=== PATIENT | male | born 1975 | race Caucasian/White ===

== ENCOUNTER 2016-07-16 16:09 | Emergency (ER) | payer OTHER ==
--- NOTE | 2016-07-16 16:34 | PDOC ---
Psych/Suicidal/OD HPI - General Chief Complaint: Psychiatric Complaint Stated Complaint: HEARING VOICES, NOT SLEEPING Date Seen by Provider: 07/16/16 Time Seen by Provider: 16:29 Source: POSITIVE: Patient Exam Limitations: POSITIVE: No limitations - History of Present Illness Initial Comments: Everette is a 41 year old man coming in today from the office of probabation here in [facility], asking for an evaluation. He snorted meth 2 days ago, and went down to tell his classifications officer cc/cm about it. While there, he told them he's been having trouble sleeping and hearing voices, so they escorted him here for evaluation. In the exam room right now, the patient says he hasn't heart a voice for 2 days , and that they are not especially distressing to him. He denies suicidal and homicidal thoughts. He took himself off of lithium and effexor 3 weeks ago, on his own. He is still taking adderall. He hasn't slept in 6 nights for more than 2 hours each night. He takes ambien, but it wears off after 2 hours and then he wakes up. He denies headache, dizziness, lightheadedness, chest pain, shortness of breath, fever, nausea, vomiting, abdominal pain, constipation, diarrhea, and rash. He is pleasant and cooperative. His plan is to have his sister drive him up to [facility] after this visit, because he wants to be restarted on his medications. - Patient Home Medications Home Medications: Home Medications Medication Instructions Recorded Confirmed Zolpidem Tartrate [Ambien] 1 tab PO QHS PRN #30 tab 07/09/16 07/16/16 Amphet Asp/Amphet/D-Amphet 30 mg PO BID 07/16/16 07/16/16 [Adderall 30 mg Tablet] - Patient Allergies Allergies/Adverse Reactions: Allergies Allergy/AdvReac Type Severity Reaction Status Date / Time No Known Allergies Allergy Verified 07/16/16 16:34 Past Medical History - heen HEENT History: Denies History Cardiovascular History: Denies History Respiratory History: Denies History Gastrointestinal History: Denies History Genitourinary History: Denies History Endocrine History: Denies History Musculoskeletal History: Denies History Neurological History: Denies History Blood Disorders: Denies History Psychiatric History: Depression, Bi Polar Disorder, Anixety Disorders, ADHD History of Sexually Transmitted Diseases: No Cancer History: Denies History History of MDRO: Unknown History of Other Communicable Diseases: No Alcohol Use: Occasionally Substance Use Type: None, Methamphetamines Previous Surgical History: No Significant Family History: No pertinent family hx Past Medical History Reviewed: Reviewed - No Changes ROS - Limitations ROS Limitations: No Limitations Constitution: REPORTS: Denies Symptoms Cardiovascular: REPORTS: Denies Cardiac Symptoms Respiratory: REPORTS: Denies Resp Symptoms Neurological: REPORTS: Denies Neuro Symptoms Gastrointestinal: REPORTS: Denies GI Symptoms Endocrine: REPORTS: Denies Symptoms Musculoskeletal: REPORTS: Denies MS Symptoms Genitourinary: REPORTS: Denies Symptoms Eyes: REPORTS: Denies Symptoms ENT: REPORTS: Denies Symptoms Skin: REPORTS: Denies Skin Symptoms Psychiatric: POSITIVE: Anxiety, Auditory Hallucinations, Other (sleeping problems) Psych/Suicidal/OD Exam - General Appearance General Appearance: POSITIVE: No Acute Distress, Alert - HEENT HEENT: POSITIVE: Head Inspection Nml, Eyes Inspection Nml, Ears Inspection Nml, Nose Inspection Nml, Pharynx Inspect. 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 Sensory/Motor: POSITIVE: Normal Motor Response When asked, pt ADMITS continued consideration of suicide:: No - Neck/Back Neck/Back: POSITIVE: Normal Inspection - Respiratory Respiratory: POSITIVE: No Respiratory Distress, Breath Sounds Normal - CVS Cardiovascular: POSITIVE: Regular Rate and Rhythm, Heart Sounds Normal, Equal Pulses Peripheral Pulses: Radial (R): 2+, Radial (L): 2+ - Abdomen Abdomen: Soft: (All Quadrants), Denies Tenderness: (All Quadrants) - Skin Skin: POSITIVE: Intact, Normal For Race, Warm, Dry, No Rash - Extremities Extremity: Non-Tender: (All Extremities), Normal ROM: (All Extremities) Psych/Suicidal/OD Progress - Results Reviewed by me Lab Results:: Laboratory Results 07/16/16 Range/Units 16:41 WBC 7.66 (4.8-10.8) 10^3/uL RBC 5.24 (4.70-6.10) 10^6/uL Hgb 14.9 (14.0-18.0) g/dL Hct 44.4 (42.0-52.0) % MCV 84.7 (80-90) FL MCH 28.4 (27-31) PG MCHC 33.6 (33-37) g/dL RDW Std Deviation 40.7 (39-50) fL RDW Coeff of Jonathan 13.2 (11.5-14.5) % Plt Count 368 H (140-350) 10*3/uL MPV 9.5 (7.4-12.2) FL Immature Gran % (Auto) 0.1 (0-5) % Neut % (Auto) 62.5 (50-80) % Lymph % (Auto) 26.5 (10-50) % [place] % (Auto) 8.2 (5-15) % Eos % (Auto) 2.3 (0-8) % Baso % (Auto) 0.4 (0-1) % Immature Gran # (Auto) 0.01 10*3/UL Neut # (Auto) 4.78 10*3/UL Lymph # (Auto) 2.03 10*3/uL [place] # (Auto) 0.63 (0.3-0.8) 10*3/UL Eos # (Auto) 0.18 10*3/UL Baso # (Auto) 0.03 10*3/UL WBC Morphology Comment Normal morphology (NORM) Plt Morphology Comment Normal morphology (NORM) RBC Morph Comment Normal morphology (NORM) Sodium 141 (135-145) meq/L Potassium 3.8 (3.8-5.2) meq/L Chloride 102 (98-112) meq/L Carbon Dioxide 27 (23-33) meq/L Anion Gap 12 (5-20) BUN 11 (7-22) mg/dL Creatinine 0.7 (0.70-1.50) mg/dL Estimated GFR > 60 (>60 ml/min/1.73m(2)) BUN/Creatinine Ratio 15.71 (6-20) Glucose 83 (78-110) mg/dL Calculated Osmolality 289.0 (267-292) mOsm/kg Calcium 9.4 (8.7-10.7) mg/dL Total Bilirubin 0.7 (0.3-1.2) mg/dL AST 19 L (21-57) IU/L ALT 27 (21-72) IU/L Alkaline Phosphatase 66 (38-126) IU/L Total Protein 7.6 (6.1-8.0) g/dL Albumin 4.7 (3.5-4.8) g/dL Globulin 2.9 (2.50-4.10) g/dL Albumin/Globulin Ratio 1.60 (1.3-2.0) mg/g Ur Collection Type Clean catch urine Urine Color Yellow Urine Clarity Clear (CLEAR) Urine pH 7.0 (5.0-8.5) Ur Specific [place] <=1.005 (1.005-1.030) U Specif Grav (Refrac) 1.006 Urine Protein Negative (NEG) mg/dl Urine Glucose (UA) Negative (NEG) mg/dL Urine Ketones Negative (NEG) Urine Occult Blood Negative (NEG) Urine Nitrate Negative (NEG) Urine Bilirubin Negative (NEG) Urine Urobilinogen 0.2 (0.2) EU/dL Ur Leukocyte Esterase Trace (NEG) Urine RBC 0-3 (NONE) /hpf Urine WBC 0-3 (NONE) Ur Squamous Epith Cells Few (NONE) Ur Renal Epithelial Cell None (NONE) Urine Crystals None Urine Bacteria None (NONE) Urine Casts None (NONE) Urine Mucus None (NONE) Urine Trichomonas None (NONE) Urine Yeast None (NONE) Ur Culture Indicated? Culture not set Salicylates < 1 (0-20) mg/dl Urine Opiates Screen Negative (NEG) Ur Buprenorphine Negative (NEG) Ur Oxycodone Screen Negative (NEG) Urine Methadone Screen Negative (NEG) Ur Propoxyphene Screen Negative (NEG) Acetaminophen < 4.0 (0-30) ug/mL Barbiturate Screen Negative (NEG) U Tricyclic Antidepress Negative (NEG) Phencyclidine Screen Negative (NEG) Amphetamines Screen Positive H (NEG) U Methamphetamines Scrn Positive H (NEG) Benzodiazepines Screen Negative (NEG) Cocaine Screen Negative (NEG) U Marijuana (THC) Screen Negative (NEG) Serum Alcohol 3 (0-10) mg/dL - Patient's Progress MDM / ED Course: Everette is a 41 year old man coming in today for sleep disturbance and auditory hallucinations. He is not actively hallucinating right now. He is appropriate and cooperative. Screening labs were drawn and were reassuring. His sister came in and is willing to take him over to [facility]. He is not acutely suicidal or inappropriate, so I have no reason to put him on a hold. We will discharge him with his sister with the understanding that they will go over to [facility]. Patient Care Time - Estimated PCT Patient Care Time (In Minutes): 20 Vital Signs - Recent Vital Signs Vital Signs: Vital Signs (Last 8 hours) Temp Pulse Resp BP Pulse Ox 07/16/16 16:10 98.4 F 102 H 20 131/67 98 Discharge Clinical Impression: Insomnia Qualifiers: Insomnia type: due to other mental disorder Qualifier Code: (F51.05) Insomnia due to other mental disorder Condition: Fair Additional Instructions: Your labs were reassuring, your vital signs were normal, and your exam was normal. Go over to [facility] and talk to their intake staff about voluntary admission.
[2016-07-16 16:46] VITALS: RESP 20; TEMP 98.4
[2016-07-16 16:47] LABS: BASOPHILS # (AUTO) 0.03 10*3/UL; BASOPHILS % (AUTO) 0.4 % (0-1); EOSINOPHILS % (AUTO) 2.3 % (0-8); HEMATOCRIT 44.4 % (42.0-52.0); HEMOGLOBIN 14.9 g/dL (14.0-18.0); IMM GRAN % (AUTO) 0.1 % (0-5); IMM GRAN# (AUTO) 0.01 10*3/UL; LYMPHOCYTES # (AUTO) 2.03 10*3/uL; LYMPHOCYTES % (AUTO) 26.5 % (10-50); MEAN CORPUSCULAR HEMOGLOBIN 28.4 PG (27-31); MEAN CORPUSCULAR HGB CONC 33.6 g/dL (33-37); MEAN PLATELET VOLUME 9.5 FL (7.4-12.2); MONOCYTES # (AUTO) 0.63 10*3/UL (0.3-0.8); MONOCYTES % (AUTO) 8.2 % (5-15); NEUTROPHILS # (AUTO) 4.78 10*3/UL; NEUTROPHILS % (AUTO) 62.5 % (50-80); RDW COEFFICIENT OF VARIATION 13.2 % (11.5-14.5); RED BLOOD COUNT 5.24 10^6/uL (4.70-6.10); WHITE BLOOD COUNT 7.66 10^3/uL (4.8-10.8)
[2016-07-16 16:49] LABS: PLATELET MORPHOLOGY COMMENT NORMAL MORPHOLOGY (NORM)
[2016-07-16 16:59] LABS: BILIRUBIN,URINE NEGATIVE (NEG); CLARITY,URINE CLEAR (CLEAR); GLUCOSE, URINE (UA) NEGATIVE (NEG); LEUKOCYTE ESTERASE ,URINE TRACE (NEG); NITRATE,URINE NEGATIVE (NEG); OCCULT BLOOD,URINE NEGATIVE (NEG); PROTEIN,URINE NEGATIVE (NEG); UROBILINOGEN,URINE 0.2 EU/dL (0.2)
[2016-07-16 17:05] LABS: URINE SAMPLE TYPE CLEAN CATCH URINE
[2016-07-16 17:12] LABS: SODIUM 141 meq/L (135-145)
[2016-07-16 17:13] LABS: ASPARTATE AMINO TRANSFERASE 19 IU/L (21-57); BILIRUBIN,TOTAL 0.7 mg/dL (0.3-1.2); BLOOD UREA NITROGEN 11 mg/dL (7-22); BUN/CREATININE RATIO 15.71 (6-20); CALCIUM 9.4 mg/dL (8.7-10.7); CHLORIDE 102 meq/L (98-112); CREATININE 0.7 mg/dL (0.70-1.50); EST GLOMERULAR FILTRATION > 60 (>60 ml/min/1.73m(2)); GLUCOSE 83 mg/dL (78-110); POTASSIUM 3.8 meq/L (3.8-5.2); TOTAL PROTEIN 7.6 g/dL (6.1-8.0)
[2016-07-16 17:14] LABS: SERUM ALCOHOL 3 mg/dL (0-10)
[2016-07-16 17:16] LABS: CANNABINOID SCREEN,URINE NEGATIVE (NEG); COCAINE SCREEN NEGATIVE (NEG); METHAMPHETAMINES SCREEN,URINE POSITIVE (NEG); RBC,URINE 0-3 /hpf; SQUAMOUS EPITHELIAL CELL,UR FEW; URINE SPECIFIC GRAVITY - MAN 1.006; WBC,URINE 0-3
== END 2016-07-16 17:53 | disposition home or self-care (01) ==
LOC: ER 16:09
DX: F51.05 Insomnia due to other mental disorder (principal); F15.10 Other stimulant abuse, uncomplicated; R44.0 Auditory hallucinations
CPT/HCPCS: 36415; 80053; 80320; 80329 ×2; 81001; 81003; 84443; 85025; 99283 ×2; G0477

== ENCOUNTER → 2016-08-12 | Outpatient (CLI) | payer OTHER | LOC: MMPC 09:00 | PROVIDERS: ATTEND Family Medicine | DX: F41.1 Generalized anxiety disorder (principal); F19.982 Other psychoactive substance use, unspecified with psychoactive substance-induced sleep disorder; F15.10 Other stimulant abuse, uncomplicated | CPT/HCPCS: 99214; G0463 ==